=== PATIENT | male | born 1960 | race Caucasian/White ===

== ENCOUNTER → 2020-04-18 | Outpatient (CLI) | payer BC ==
[2020-04-18 09:50] LABS: EOS # 0.2 (0.04-0.40); EOS % 4.6 % (0.0-4.0); HEMOGLOBIN 16.4 g/dL (13.5-18.0); LYMPH# 1.7 (1.50-4.00); MEAN CELL VOLUME 93 fl (78-100); MEAN CORPUSCULAR HEMOGLOBIN 31 pg (27-31); MEAN CORPUSCULAR HGB CONC 33 g/dL (33-37); MEAN PLATELET VOLUME 10.2 fl (7.4-10.4); MONO # 0.5 (0.20-0.80); PLATELET COUNT 191 K/mm3 (130-400); RED BLOOD COUNT 5.38 M/mm3 (4.20-5.60); RED CELL DISTRIBUTION WIDTH 12.6 % (11.5-14.5); WHITE BLOOD COUNT 4.3 K/mm3 (4.8-10.8)
[2020-04-18 09:55] LABS: ALBUMIN 4.4 g/dL (3.5-5.0); POTASSIUM 3.9 mmol/L (3.5-5.1)
[2020-04-18 09:56] LABS: CALCIUM 9.4 mg/dL (8.3-10.5)
[2020-04-18 09:57] LABS: TOTAL PROTEIN 7.1 g/dL (6.4-8.3)
[2020-04-18 10:00] LABS: URINE APPEARANCE CLEAR; URINE COLOR YELLOW
[2020-04-18 10:01] LABS: URINE BILIRUBIN NEGATIVE (NEGATIVE); URINE BLOOD NEGATIVE (NEGATIVE); URINE GLUCOSE NEGATIVE (NEGATIVE); URINE KETONE NEGATIVE (NEGATIVE); URINE LEUKOCYTE ESTERASE NEGATIVE (NEGATIVE); URINE MUCUS PRESENT (NOT PRESENT); URINE NITRATE NEGATIVE (NEGATIVE); URINE PROTEIN(semi-quant) TRACE mg/dL (NEGATIVE); URINE UROBILINOGEN NORMAL (NORMAL)
== END ==
LOC: AMSURD 09:19 → LAB 09:19
PROVIDERS: Family Medicine
DX: Z00.00 Encounter for general adult medical examination without abnormal findings (principal); J45.20 Mild intermittent asthma, uncomplicated; I10 Essential (primary) hypertension; K22.2 Esophageal obstruction

== ENCOUNTER → 2020-05-24 | Outpatient (CLI) | payer BC | LOC: AMSURD 10:36 | DX: R00.1 Bradycardia, unspecified (principal) ==

== ENCOUNTER → 2021-06-19 | Outpatient (CLI) | payer BC ==
[2021-06-19 07:45] LABS: ALBUMIN 4.2 g/dL (3.4-4.8); POTASSIUM 3.9 mmol/L (3.5-5.1)
[2021-06-19 07:46] LABS: CALCIUM 9.4 mg/dL (8.3-10.5)
[2021-06-19 07:47] LABS: TOTAL PROTEIN 7.4 g/dL (6.2-8.1)
[2021-06-19 07:49] LABS: TOTAL BILIRUBIN 0.6 mg/dL (0.2-1.2)
== END ==
LOC: LAB 07:24
PROVIDERS: Family Medicine
DX: Z13.1 Encounter for screening for diabetes mellitus (principal); Z13.220 Encounter for screening for lipoid disorders; I10 Essential (primary) hypertension

== ENCOUNTER → 2021-07-10 | Outpatient (CLI) | payer BC | LOC: AMSURD 11:46 | DX: R00.8 Other abnormalities of heart beat (principal) ==

== ENCOUNTER → 2021-09-16 | Outpatient (CLI) | payer BC | LOC: LAB 10:15 | DX: Z13.1 Encounter for screening for diabetes mellitus (principal); Z13.220 Encounter for screening for lipoid disorders; I10 Essential (primary) hypertension ==

== ENCOUNTER → 2022-11-03 | Outpatient (CLI) | payer BC ==
[2022-11-03 10:14] LABS: POTASSIUM 4.5 mmol/L (3.5-5.1)
[2022-11-03 10:15] LABS: CALCIUM 9.6 mg/dL (8.3-10.5)
== END ==
LOC: LAB 09:37
PROVIDERS: Family Medicine
DX: Z12.5 Encounter for screening for malignant neoplasm of prostate (principal); Z13.6 Encounter for screening for cardiovascular disorders; Z13.1 Encounter for screening for diabetes mellitus; I10 Essential (primary) hypertension